=== PATIENT | male | born 1960 | race Caucasian/White ===

== ENCOUNTER 2016-08-31 11:39 | Emergency (ER) | payer OTHER ==
[~2016-08-31] VITALS: Ht 177.8 cm; Wt 121.6 kg
[~2016-08-31 11:39] MED LIST: ATARAX,VISTARIL25 MG PO; BACTRIM,SEPT1 TABLET PO; BACTROBAN OINTM22 GM TP; CIPRO500 MG PO; CLINDAMYCIN HC300 MG PO; COLACE100 MG PO; FLOMAX0.4 MG PO; GABAPENTIN100 MG PO; HYDROCODON-ACE1 EAC7 PO; KEFLEX500 MG PO; LISINOPRIL10 MG PO; METHADONE HCL40 MG PO; MOTRIN600 MG PO; NAPROSYN500 MG PO; NORCO 5/3251 TABLET PO; OTC ACID REFLUX MED; PERCOCET 10/1 TABLET PO; PERCOCET 5/31 TABLET PO; PHENERGAN25 MG PR; PREVACID30 MG PO; ROPINIROLE HCL1 MG PO; TAMSULOSIN HCL0.4 MG PO; TESSALON200 MG PO; TORADOL10 MG PO; TRAZODONE HCL50 MG PO; VICODIN 5-3001 EACH PO; ZOFRAN4 MG PO
[2016-08-31 12:25] LABS: HEMATOCRIT 48.2 % (38.0-50.0); MCH 31.5 PG (29.0-34.0); MCHC 35.3 G/DL (30.0-36.0); MCV 89.4 FL (86-99); MEAN PLAT.VOLUME 9.4 uM^3 (9.0-12.4); PLATELET COUNT 262 K/uL (156-360); RBC DIS.WIDTH-CV 12.2 % (11.8-14.6); RBC DIS.WIDTH-SD 39.8 % (39-53); RED BLOOD COUNT 5.39 M/uL (4.00-5.50); WHITE BLOOD COUNT 10.5 K/uL (4.1-10.2)
[2016-08-31 12:35] LABS: CHLORIDE 109 mEq/L (99-109); POTASSIUM 4.3 mEq/L (3.7-5.4); SODIUM 137 mEq/L (136-147)
[2016-08-31 12:37] LABS: GLUCOSE 109 mg/dL (70-99)
[2016-08-31 12:38] LABS: ANION GAP 9 MEQ/L (2-14)
[2016-08-31 13:01] LABS: GFR ESTIMATE (CALCULATED) > 59 mL/min/; UREA NITROGEN (BUN) 13 mg/dL (9-23)
[2016-08-31 13:22] LABS: TOTAL BILIRUBIN 0.5 mg/dL (0.0-1.0)
[2016-08-31 13:23] LABS: ALKALINE PHOSPHATASE 119 IU/L (3-129)
[2016-08-31 13:26] LABS: DIRECT BILIRUBIN 0.2 mg/dL (0.0-0.3)
[2016-08-31 13:38] LABS: ADD MIUA? NO; BILIRUBIN NEGATIVE; BLOOD NEGATIVE; COLOR YELLOW ((YELLOW)); GLUCOSE (STRIP) NEGATIVE; KETONES NEGATIVE; LEUKOCYTES NEGATIVE; NITRITE NEGATIVE; PROTEIN (STRIP) NEGATIVE; SPECIFIC GRAVITY 1.019 (1.000-1.030); UCUL ADDED? NO; UROBILINOGEN 0.2 MG/DL (0.2-1.0)
[2016-08-31] MEDS ORDERED: ZOFRAN ODT4 MG PO (17:02)
[2016-08-31] MEDS ORDERED: NAPROSYN500 MG PO (17:02)
[2016-08-31] MEDS ORDERED: PHENERGAN12.5 MG PR (17:02)
[2016-08-31 18:54] VITALS: BP 135/74
== END 2016-08-31 18:55 | disposition home or self-care (01) ==
LOC: EME 11:39
DX: N20.0 Calculus of kidney (principal); R79.89 Other specified abnormal findings of blood chemistry; N28.1 Cyst of kidney, acquired; G89.29 Other chronic pain; I10 Essential (primary) hypertension; Z87.442 Personal history of urinary calculi; K21.9 Gastro-esophageal reflux disease without esophagitis; Z86.14 Personal history of Methicillin resistant Staphylococcus aureus infection
CPT/HCPCS: 74000; 76770; 80048; 80076; 81003; 85027; 99281; 99284; J1885; J2765; J3010

== ENCOUNTER 2017-01-04 05:29 | Emergency (ER) | payer OTHER ==
[~2017-01-04] VITALS: Ht 175.3 cm; Wt 124.7 kg
[~2017-01-04 05:29] MED LIST changes: +PHENERGAN12.5 MG PR; +ZOFRAN ODT4 MG PO
[2017-01-04 05:56] LABS: HEMATOCRIT 45.6 % (38.0-50.0); MCH 31.7 PG (29.0-34.0); MCHC 34.9 G/DL (30.0-36.0); MEAN PLAT.VOLUME 9.1 uM^3 (9.0-12.4); PLATELET COUNT 247 K/uL (156-360); RBC DIS.WIDTH-SD 39.6 % (39-53); RED BLOOD COUNT 5.01 M/uL (4.00-5.50); WHITE BLOOD COUNT 7.8 K/uL (4.1-10.2)
[2017-01-04 06:08] LABS: CHLORIDE 107 mEq/L (99-109); POTASSIUM 4.3 mEq/L (3.7-5.4); SODIUM 139 mEq/L (136-147)
[2017-01-04 06:10] LABS: GLUCOSE 108 mg/dL (70-99)
[2017-01-04 06:12] LABS: ANION GAP 9 MEQ/L (2-14)
[2017-01-04 06:14] LABS: GFR ESTIMATE (CALCULATED) > 59 mL/min/
[2017-01-04 06:15] LABS: UREA NITROGEN (BUN) 12 mg/dL (9-23)
[2017-01-04 07:23] LABS: ADD MIUA? NO; BILIRUBIN NEGATIVE; BLOOD NEGATIVE; COLOR YELLOW ((YELLOW)); GLUCOSE (STRIP) NEGATIVE; KETONES NEGATIVE; LEUKOCYTES NEGATIVE; NITRITE NEGATIVE; PROTEIN (STRIP) NEGATIVE; SPECIFIC GRAVITY 1.013 (1.000-1.030); UCUL ADDED? NO; UROBILINOGEN 0.2 MG/DL (0.2-1.0)
[2017-01-04] MEDS ORDERED: PERCOCET 5/31 TABLET PO (07:42)
[2017-01-04] MEDS ORDERED: NAPROXEN500 MG PO (07:42)
[2017-01-04 08:00] VITALS: BP 139/68
== END 2017-01-04 08:01 | disposition home or self-care (01) ==
LOC: EME 05:29
PROVIDERS: Physician Assistant
DX: R10.32 Left lower quadrant pain (principal); M54.5 Low back pain; Z87.442 Personal history of urinary calculi; I10 Essential (primary) hypertension
CPT/HCPCS: 74176; 80048; 81003; 85027; J1885; J2270; J2405; J7030

== ENCOUNTER 2017-04-01 12:33 | Inpatient (IN) | payer OTHER ==
[~2017-04-01] VITALS: Ht 172.7 cm; Wt 126.7 kg
[~2017-04-01 12:33] MED LIST changes: +NAPROXEN500 MG PO
[2017-04-01] MEDS ORDERED: OXYMORPHONE HCL15 MG PO (13:36)
[2017-04-01 13:37] LABS: HEMATOCRIT 45.3 % (38.0-50.0); MCH 31.5 PG (29.0-34.0); MCHC 34.9 G/DL (30.0-36.0); MCV 90.2 FL (86-99); MEAN PLAT.VOLUME 9.1 uM^3 (9.0-12.4); PLATELET COUNT 278 K/uL (156-360); RBC DIS.WIDTH-CV 12.3 % (11.8-14.6); RBC DIS.WIDTH-SD 39.7 % (39-53); RED BLOOD COUNT 5.02 M/uL (4.00-5.50); WHITE BLOOD COUNT 10.5 K/uL (4.1-10.2)
[2017-04-01 13:40] LABS: ADD MIUA? YES; BILIRUBIN NEGATIVE; BLOOD NEGATIVE; COLOR YELLOW ((YELLOW)); GLUCOSE (STRIP) NEGATIVE; KETONES NEGATIVE; LEUKOCYTES NEGATIVE; NITRITE NEGATIVE; PROTEIN (STRIP) 100; UROBILINOGEN 0.2 MG/DL (0.2-1.0)
[2017-04-01 13:43] LABS: BACTERIA RARE /HPF; CALCIUM OXALATE CRYSTALS 2+ /HPF; EPITHELIAL CELLS RARE /HPF; MUCUS TRACE /LPF; RED BLOOD CELLS 0-5 /HPF (0-5); WHITE BLOOD CELLS 0-5 /HPF (0-5)
[2017-04-01 13:46] LABS: CHLORIDE 105 mEq/L (99-109); POTASSIUM 3.8 mEq/L (3.7-5.4); SODIUM 137 mEq/L (136-147)
[2017-04-01 13:49] LABS: GLUCOSE 114 mg/dL (70-99)
[2017-04-01 13:50] LABS: ANION GAP 10 MEQ/L (2-14)
[2017-04-01 13:51] LABS: TOTAL BILIRUBIN 0.8 mg/dL (0.0-1.0)
[2017-04-01 13:52] LABS: ALKALINE PHOSPHATASE 120 IU/L (3-129); GFR ESTIMATE (CALCULATED) > 59 mL/min/
[2017-04-01 13:53] LABS: UREA NITROGEN (BUN) 10 mg/dL (9-23)
[2017-04-01 13:56] LABS: LIPASE 312 U/L (1.0-51.0)
[2017-04-01] MEDS ORDERED: OXYCODONE HCL5 MG PO (15:19)
[2017-04-01] MEDS ORDERED: PROTONIX40 MG PO (15:30)
[2017-04-01 16:18] VITALS: BP 154/81
[2017-04-01 21:00] VITALS: BP 132/78
[2017-04-01 23:35] VITALS: BP 152/82
[2017-04-02 06:11] LABS: HEMATOCRIT 41.3 % (38.0-50.0); MCHC 34.6 G/DL (30.0-36.0); MCV 92.4 FL (86-99); MEAN PLAT.VOLUME 9.5 uM^3 (9.0-12.4); PLATELET COUNT 226 K/uL (156-360); RBC DIS.WIDTH-CV 12.5 % (11.8-14.6); RBC DIS.WIDTH-SD 42.5 % (39-53); RED BLOOD COUNT 4.47 M/uL (4.00-5.50); WHITE BLOOD COUNT 8.3 K/uL (4.1-10.2)
[2017-04-02 06:36] LABS: ALKALINE PHOSPHATASE 85 IU/L (3-129); ANION GAP 8 MEQ/L (2-14); CHLORIDE 109 MEQ/L (99-109); GFR ESTIMATE (CALCULATED) > 59 mL/min/; GLUCOSE 134 mg/dL (70-99); POTASSIUM 3.6 MEQ/L (3.7-5.4); SAMPLE HEMOLYSIS CHECK 0; SAMPLE ICTERIC CHECK 0; SAMPLE LIPEMIA CHECK 0; SODIUM 142 MEQ/L (136-147); TOTAL BILIRUBIN 0.6 MG/DL (0.0-1.0); UREA NITROGEN (BUN) 10 mg/dL (9-23)
[2017-04-02 08:00] VITALS: BP 148/80
[2017-04-02 16:27] VITALS: BP 155/88
[2017-04-02 23:23] VITALS: BP 147/74
[2017-04-03 06:37] LABS: EOSINOPHIL (%) 1.6 % (0-5); EOSINOPHIL COUNT 0.1 K/uL (0-0.3); HEMATOCRIT 40.9 % (38.0-50.0); IMMATURE GRANULOCYTE (%) 0.5 % (0.0-0.7); INSTRUMENT ABS NEUTROPHIL CT 4.1 K/uL; LYMPHOCYTE COUNT 1.3 K/uL (1.0-2.8); MCH 31.1 PG (29.0-34.0); MCHC 33.7 G/DL (30.0-36.0); MCV 92.1 FL (86-99); MEAN PLAT.VOLUME 9.2 uM^3 (9.0-12.4); MONOCYTE (%) 10.2 % (3-12); MONOCYTE COUNT 0.6 K/uL (0-0.8); NEUTROPHIL (%) 66.5 % (45-76); NEUTROPHIL COUNT 4.1 K/uL (1.8-6.4); PLATELET COUNT 213 K/uL (156-360); RBC DIS.WIDTH-CV 12.6 % (11.8-14.6); RBC DIS.WIDTH-SD 42.4 % (39-53); RED BLOOD COUNT 4.44 M/uL (4.00-5.50); WHITE BLOOD COUNT 6.2 K/uL (4.1-10.2)
[2017-04-03 07:12] LABS: ANION GAP 7 MEQ/L (2-14); CHLORIDE 109 MEQ/L (99-109); GFR ESTIMATE (CALCULATED) > 59 mL/min/; GLUCOSE 107 mg/dL (70-99); MAGNESIUM 1.7 mg/dl (1.3-2.7); POTASSIUM 3.7 MEQ/L (3.7-5.4); SAMPLE HEMOLYSIS CHECK 0; SAMPLE ICTERIC CHECK 0; SAMPLE LIPEMIA CHECK 0; SODIUM 142 MEQ/L (136-147); UREA NITROGEN (BUN) 8 mg/dL (9-23)
[2017-04-03 09:11] VITALS: BP 127/77
[2017-04-03 17:51] VITALS: BP 139/69
[2017-04-03 23:58] VITALS: BP 147/72
[2017-04-04 06:40] LABS: EOSINOPHIL (%) 1.5 % (0-5); EOSINOPHIL COUNT 0.1 K/uL (0-0.3); HEMATOCRIT 40.9 % (38.0-50.0); IMMATURE GRANULOCYTE (%) 0.5 % (0.0-0.7); INSTRUMENT ABS NEUTROPHIL CT 4.4 K/uL; MCH 32.2 PG (29.0-34.0); MCHC 34.5 G/DL (30.0-36.0); MCV 93.4 FL (86-99); MEAN PLAT.VOLUME 9.5 uM^3 (9.0-12.4); MONOCYTE (%) 10.8 % (3-12); MONOCYTE COUNT 0.7 K/uL (0-0.8); NEUTROPHIL (%) 70.6 % (45-76); NEUTROPHIL COUNT 4.4 K/uL (1.8-6.4); PLATELET COUNT 200 K/uL (156-360); RBC DIS.WIDTH-CV 12.7 % (11.8-14.6); RBC DIS.WIDTH-SD 43.5 % (39-53); RED BLOOD COUNT 4.38 M/uL (4.00-5.50); WHITE BLOOD COUNT 6.2 K/uL (4.1-10.2)
[2017-04-04 07:02] LABS: ANION GAP 4 MEQ/L (2-14); CHLORIDE 105 MEQ/L (99-109); GFR ESTIMATE (CALCULATED) > 59 mL/min/; GLUCOSE 107 mg/dL (70-99); LIPASE 13 U/L (1.0-51.0); MAGNESIUM 1.7 mg/dl (1.3-2.7); SAMPLE HEMOLYSIS CHECK 0; SAMPLE ICTERIC CHECK 0; SAMPLE LIPEMIA CHECK 0; SODIUM 139 MEQ/L (136-147); UREA NITROGEN (BUN) 8 mg/dL (9-23)
[2017-04-04 08:17] LABS: ADD MIUA? NO; BILIRUBIN NEGATIVE; BLOOD NEGATIVE; COLOR YELLOW ((YELLOW)); GLUCOSE (STRIP) NEGATIVE; KETONES NEGATIVE; LEUKOCYTES NEGATIVE; NITRITE NEGATIVE; PROTEIN (STRIP) NEGATIVE; SPECIFIC GRAVITY 1.014 (1.000-1.030); UCUL ADDED? NO
[2017-04-04 08:27] VITALS: BP 132/72
[2017-04-04 17:09] VITALS: BP 121/66
[2017-04-05] VITALS: BP 140/68
[2017-04-05 06:51] LABS: EOSINOPHIL (%) 4.3 % (0-5); EOSINOPHIL COUNT 0.3 K/uL (0-0.3); HEMATOCRIT 40.2 % (38.0-50.0); IMMATURE GRANULOCYTE (%) 0.3 % (0.0-0.7); INSTRUMENT ABS NEUTROPHIL CT 3.2 K/uL; LYMPHOCYTE COUNT 1.5 K/uL (1.0-2.8); MCH 32.3 PG (29.0-34.0); MCHC 35.1 G/DL (30.0-36.0); MCV 92.2 FL (86-99); MEAN PLAT.VOLUME 9.1 uM^3 (9.0-12.4); MONOCYTE (%) 13.8 % (3-12); MONOCYTE COUNT 0.8 K/uL (0-0.8); NEUTROPHIL (%) 55.2 % (45-76); NEUTROPHIL COUNT 3.2 K/uL (1.8-6.4); PLATELET COUNT 203 K/uL (156-360); RBC DIS.WIDTH-CV 12.6 % (11.8-14.6); RBC DIS.WIDTH-SD 42.5 % (39-53); RED BLOOD COUNT 4.36 M/uL (4.00-5.50); WHITE BLOOD COUNT 5.9 K/uL (4.1-10.2)
[2017-04-05 07:17] LABS: ANION GAP 7 MEQ/L (2-14); CHLORIDE 106 MEQ/L (99-109); GFR ESTIMATE (CALCULATED) > 59 mL/min/; GLUCOSE 103 mg/dL (70-99); MAGNESIUM 1.8 mg/dl (1.3-2.7); POTASSIUM 3.8 MEQ/L (3.7-5.4); SAMPLE HEMOLYSIS CHECK 0; SAMPLE ICTERIC CHECK 0; SAMPLE LIPEMIA CHECK 0; SODIUM 142 MEQ/L (136-147); UREA NITROGEN (BUN) 8 mg/dL (9-23)
[2017-04-05 08:22] VITALS: BP 129/70
[2017-04-05 15:58] VITALS: BP 131/82
[2017-04-06 00:08] VITALS: BP 143/75
[2017-04-06 08:03] VITALS: BP 133/70
[2017-04-06] MEDS ORDERED: BENTYL20 MG PO (10:41)
[2017-04-06] MEDS ORDERED: PROTONIX40 MG PO (10:42)
[2017-04-06] MEDS ORDERED: OXYCODONE HCL5 MG PO (10:43)
[2017-04-06] MEDS ORDERED: OXYMORPHONE HCL15 MG PO (10:43)
[2017-04-06 15:54] VITALS: BP 166/82
[2017-04-06 23:33] VITALS: BP 142/60
[2017-04-07 07:52] VITALS: BP 127/63
[2017-04-07] MEDS ORDERED: ZOFRAN4 MG PO (10:58)
[2017-04-07 16:08] VITALS: BP 132/67
== END 2017-04-07 16:11 | disposition home or self-care (01) | DRG 439 ==
LOC: EME 12:33 → 5SOUTH 14:40 → EDOF 14:40 → ENRESERV 14:43 → 5SOUTH 15:45
PROVIDERS: Internal Medicine; Nurse Practitioner Family
DX: K85.90 Acute pancreatitis without necrosis or infection, unspecified (principal); K22.10 Ulcer of esophagus without bleeding; I10 Essential (primary) hypertension; E66.01 Morbid (severe) obesity due to excess calories; G89.29 Other chronic pain; K21.9 Gastro-esophageal reflux disease without esophagitis; K29.70 Gastritis, unspecified, without bleeding; K29.80 Duodenitis without bleeding; N20.0 Calculus of kidney; Z68.41 Body mass index [BMI] 40.0-44.9, adult; Z87.442 Personal history of urinary calculi; M19.90 Unspecified osteoarthritis, unspecified site; K30 Functional dyspepsia; R07.9 Chest pain, unspecified; M54.5 Low back pain
CPT/HCPCS: 72131; 74176; 76705; 80048; 80053; 81003; 83690; 83735; 84100; 85025; 85027; 88305; 88342 TC; 99281; 99285; J1170; J1650; J1885; J2270; J2405; J2765; J3010; J7030; J7042; S0028

== ENCOUNTER 2017-04-12 10:42 | Emergency (ER) | payer OTHER ==
[~2017-04-12] VITALS: Ht 172.7 cm; Wt 124.0 kg
[~2017-04-12 10:42] MED LIST changes: +BENTYL20 MG PO; +OXYCODONE HCL5 MG PO; +OXYMORPHONE HCL15 MG PO; +PROTONIX40 MG PO
[2017-04-12 12:18] LABS: HEMATOCRIT 45.6 % (38.0-50.0); MCH 31.4 PG (29.0-34.0); MCHC 34.9 G/DL (30.0-36.0); MCV 90.1 FL (86-99); MEAN PLAT.VOLUME 9.4 uM^3 (9.0-12.4); RBC DIS.WIDTH-CV 12.1 % (11.8-14.6); RBC DIS.WIDTH-SD 39.7 % (39-53); RED BLOOD COUNT 5.06 M/uL (4.00-5.50); WHITE BLOOD COUNT 9.7 K/uL (4.1-10.2)
[2017-04-12 12:19] LABS: PLATELET COUNT 309 K/uL (156-360)
[2017-04-12 12:28] LABS: CHLORIDE 104 mEq/L (99-109); POTASSIUM 3.9 mEq/L (3.7-5.4); SODIUM 138 mEq/L (136-147)
[2017-04-12 12:29] LABS: AMYLASE 37 IU/L (1-118)
[2017-04-12 12:30] LABS: GLUCOSE 109 mg/dL (70-99)
[2017-04-12 12:31] LABS: ANION GAP 8 MEQ/L (2-14)
[2017-04-12 12:32] LABS: TOTAL BILIRUBIN 0.8 mg/dL (0.0-1.0)
[2017-04-12 12:34] LABS: ALKALINE PHOSPHATASE 117 IU/L (3-129); GFR ESTIMATE (CALCULATED) > 59 mL/min/
[2017-04-12 12:35] LABS: UREA NITROGEN (BUN) 13 mg/dL (9-23)
[2017-04-12 12:37] LABS: LIPASE 14 U/L (1.0-51.0)
[2017-04-12 12:49] VITALS: BP 156/83
[2017-04-12 14:25] LABS: ADD MIUA? YES; BILIRUBIN NEGATIVE; BLOOD NEGATIVE; COLOR YELLOW ((YELLOW)); GLUCOSE (STRIP) NEGATIVE; KETONES NEGATIVE; LEUKOCYTES NEGATIVE; NITRITE NEGATIVE; PROTEIN (STRIP) 100; UROBILINOGEN 0.2 MG/DL (0.2-1.0)
[2017-04-12 14:38] LABS: BACTERIA NONE SEEN /HPF; EPITHELIAL CELLS NONE SEEN /HPF; MUCUS TRACE /LPF; RED BLOOD CELLS 0-5 /HPF (0-5); UCUL ADDED? NO; WHITE BLOOD CELLS 0-5 /HPF (0-5)
== END 2017-04-12 14:46 | disposition home or self-care (01) ==
LOC: EME 10:42
DX: R10.30 Lower abdominal pain, unspecified (principal); G89.29 Other chronic pain; I10 Essential (primary) hypertension; K21.9 Gastro-esophageal reflux disease without esophagitis; Z87.442 Personal history of urinary calculi; Z86.14 Personal history of Methicillin resistant Staphylococcus aureus infection
CPT/HCPCS: 74177; 80053; 81003; 82150; 83690; 85027; J3010; J7030

== ENCOUNTER 2017-05-06 11:47 | Emergency (ER) | payer OTHER ==
[~2017-05-06] VITALS: Ht 175.3 cm; Wt 123.2 kg
[2017-05-06 12:44] LABS: HEMATOCRIT 50.8 % (38.0-50.0); MCH 31.1 PG (29.0-34.0); MCHC 34.4 G/DL (30.0-36.0); MCV 90.2 FL (86-99); MEAN PLAT.VOLUME 9.2 uM^3 (9.0-12.4); PLATELET COUNT 303 K/uL (156-360); RBC DIS.WIDTH-CV 11.9 % (11.8-14.6); RED BLOOD COUNT 5.63 M/uL (4.00-5.50); WHITE BLOOD COUNT 9.6 K/uL (4.1-10.2)
[2017-05-06 12:52] LABS: CHLORIDE 106 mEq/L (99-109); POTASSIUM 4.1 mEq/L (3.7-5.4); SODIUM 141 mEq/L (136-147)
[2017-05-06 12:53] LABS: BILIRUBIN NEGATIVE; BLOOD NEGATIVE; COLOR YELLOW ((YELLOW)); GLUCOSE (STRIP) NEGATIVE; KETONES NEGATIVE; LEUKOCYTES NEGATIVE; NITRITE NEGATIVE; PROTEIN (STRIP) NEGATIVE; UROBILINOGEN 0.2 MG/DL (0.2-1.0)
[2017-05-06 12:54] LABS: GLUCOSE 121 mg/dL (70-99)
[2017-05-06 12:54] LABS: ADD MIUA? NO
[2017-05-06 12:56] LABS: ANION GAP 14 MEQ/L (2-14); TOTAL BILIRUBIN 0.6 mg/dL (0.0-1.0)
[2017-05-06 12:58] LABS: ALKALINE PHOSPHATASE 136 IU/L (3-129); GFR ESTIMATE (CALCULATED) > 59 mL/min/
[2017-05-06 12:59] LABS: UREA NITROGEN (BUN) 12 mg/dL (9-23)
[2017-05-06 13:30] LABS: AMYLASE 59 IU/L (1-118)
[2017-05-06 13:38] LABS: LIPASE 37 U/L (1.0-51.0)
[2017-05-06 14:12] LABS: UCUL ADDED? NO
[2017-05-06] MEDS ORDERED: PEPCID20 MG PO (17:28)
[2017-05-06 18:03] VITALS: BP 157/94
== END 2017-05-06 18:04 | disposition home or self-care (01) ==
LOC: EME 11:47
DX: R10.13 Epigastric pain (principal); I10 Essential (primary) hypertension; K21.9 Gastro-esophageal reflux disease without esophagitis; Z87.442 Personal history of urinary calculi
CPT/HCPCS: 74177; 76705; 80053; 81003; 82150; 83690; 85027; 93005; 99281; 99284; J2270; J2405; J3010; J7030

== ENCOUNTER 2017-08-07 01:33 | Emergency (ER) | payer OTHER ==
[~2017-08-07] VITALS: Ht 170.2 cm; Wt 128.2 kg
[~2017-08-07 01:33] MED LIST changes: +PEPCID20 MG PO
[2017-08-07 01:37] VITALS: BP 159/90
[2017-08-07 02:27] LABS: APPEARANCE CLOUDY ((CLEAR)); BILIRUBIN NEGATIVE; BLOOD NEGATIVE; COLOR YELLOW ((YELLOW)); GLUCOSE (STRIP) NEGATIVE; KETONES NEGATIVE; LEUKOCYTES NEGATIVE; NITRITE NEGATIVE; PROTEIN (STRIP) NEGATIVE; SPECIFIC GRAVITY 1.013 (1.000-1.030); UROBILINOGEN 0.2 MG/DL (0.2-1.0)
[2017-08-07 02:46] LABS: BACTERIA 1+ /HPF; EPITHELIAL CELLS NONE SEEN /HPF; MUCUS NONE SEEN /LPF; RED BLOOD CELLS NONE SEEN /HPF (0-5); UCUL ADDED? NO; WHITE BLOOD CELLS NONE SEEN /HPF (0-5)
[2017-08-07 02:47] LABS: AMORPHOUS PHOSPHATE CRYSTALS 3+
[2017-08-07] MEDS ORDERED: OXYCODONE HCL10 MG PO (12:24)
== END 2017-08-07 04:00 | disposition left against medical advice (07) ==
LOC: EME 01:33
DX: R10.9 Unspecified abdominal pain (principal); R07.9 Chest pain, unspecified; Z53.21 Procedure and treatment not carried out due to patient leaving prior to being seen by health care provider
CPT/HCPCS: 80053; 81003; 85027; 93005

== ENCOUNTER 2017-08-07 07:17 | Emergency (ER) | payer OTHER ==
[~2017-08-07] VITALS: Ht 170.2 cm; Wt 126.5 kg
[2017-08-07 08:19] LABS: MCH 30.8 PG (29.0-34.0); MCHC 35.6 G/DL (30.0-36.0); MCV 86.5 FL (86-99); PLATELET COUNT 263 K/uL (156-360); RBC DIS.WIDTH-CV 11.8 % (11.8-14.6); RBC DIS.WIDTH-SD 37.5 % (39-53); WHITE BLOOD COUNT 12.1 K/uL (4.1-10.2)
[2017-08-07 08:43] LABS: ALBUMIN 3.9 g/dL (3.2-4.8)
[2017-08-07 08:44] LABS: CHLORIDE 104 mEq/L (99-109); POTASSIUM 3.4 mEq/L (3.7-5.4); SODIUM 137 mEq/L (136-147)
[2017-08-07 08:45] LABS: GLUCOSE 155 mg/dL (70-99); TOTAL PROTEIN 7.6 g/dL (6.4-8.3)
[2017-08-07 08:47] LABS: TOTAL BILIRUBIN 0.8 mg/dL (0.0-1.0)
[2017-08-07 08:49] LABS: ALKALINE PHOSPHATASE 131 IU/L (3-129); CREATININE 0.8 mg/dL (0.6-1.3); GFR ESTIMATE (CALCULATED) > 59 mL/min/ (58.99-99999)
[2017-08-07 08:50] LABS: UREA NITROGEN (BUN) 10 mg/dL (9-23)
[2017-08-07 08:51] LABS: AST (GOT) 44 IU/L (2-34)
[2017-08-07 08:52] LABS: ALT (GPT) 66 IU/L (3-49)
[2017-08-07 09:01] LABS: LIPASE 18 U/L (1.0-51.0)
[2017-08-07] MEDS ORDERED: OXYCODONE HCL10 MG PO (12:24)
[2017-08-07 13:57] LABS: BILIRUBIN NEGATIVE; BLOOD NEGATIVE; COLOR AMBER ((YELLOW)); GLUCOSE (STRIP) NEGATIVE; KETONES 5; LEUKOCYTES NEGATIVE; NITRITE NEGATIVE; PROTEIN (STRIP) 100; SPECIFIC GRAVITY 1.021 (1.000-1.030); UROBILINOGEN 0.2 MG/DL (0.2-1.0)
[2017-08-07 14:00] LABS: APPEARANCE CLEAR ((CLEAR))
[2017-08-07 14:05] LABS: BACTERIA RARE /HPF; EPITHELIAL CELLS RARE /HPF; MUCUS 1+ /LPF; RED BLOOD CELLS 0-5 /HPF (0-5); UCUL ADDED? NO; WHITE BLOOD CELLS 0-5 /HPF (0-5)
[2017-08-07 16:00] VITALS: BP 135/76
== END 2017-08-07 16:01 | disposition home or self-care (01) ==
LOC: EME 07:17
DX: K52.9 Noninfective gastroenteritis and colitis, unspecified (principal); R10.32 Left lower quadrant pain; G89.29 Other chronic pain; E66.01 Morbid (severe) obesity due to excess calories; Z68.41 Body mass index [BMI] 40.0-44.9, adult; I10 Essential (primary) hypertension; Z87.442 Personal history of urinary calculi; K21.9 Gastro-esophageal reflux disease without esophagitis; Z88.5 Allergy status to narcotic agent
CPT/HCPCS: 74022; 74177; 80053; 81003; 83690; 85027; 99281; 99285; J1630; J1885; J3010; J7030